=== PATIENT | male | born 1995 | race African-American/Black ===

== ENCOUNTER 2018-10-14 20:42 | Emergency (ER) | payer SELFPAY ==
[~2018-10-14] VITALS: Ht 177.8 cm; Wt 71.7 kg
[2018-10-14] MEDS ORDERED: CEphaleXIN 500 MG CAPSULE PO ONE (21:15)
[2018-10-14] MEDS ORDERED: TDAP DIPH,PERTUSS,TET VAC/PF 0.5 ML DISP.SYRIN IM ONE ×2 (21:15→21:19)
[2018-10-14] MEDS ORDERED: CEphaleXIN 500 MG CAPSULE ONE (21:19)
--- NOTE | 2018-10-14 21:25 | NUR ---
Patient discharged to home in stable conditon. Written and verbal after care instructions given. Patient verbalizes understanding of instructions. Ambulated from ER with stable gait. All belongings with patient. TDap consent placed in chart.
[2018-10-14 21:27] VITALS: BP 133/60
== END 2018-10-14 21:28 | disposition home or self-care (01) ==
LOC: ER 20:42
DX: S00.531A Contusion of lip, initial encounter (principal); S09.90XA Unspecified injury of head, initial encounter; F17.200 Nicotine dependence, unspecified, uncomplicated; V49.49XA Driver injured in collision with other motor vehicles in traffic accident, initial encounter; Y93.89 Activity, other specified; Y92.410 Unspecified street and highway as the place of occurrence of the external cause; Y99.8 Other external cause status
CPT/HCPCS: 90715; A4663